=== PATIENT | female | born 1965 | race American Indian/Alaskan Native ===

== ENCOUNTER 2017-02-12 23:28 | Emergency (ER) | payer SELFPAY ==
[2017-02-12 23:28] VITALS: BMI 21.7
[2017-02-12 23:39] VITALS: BP 126/77; PULSE 99; RESP 16; TEMP 98.4; O2SAT 99
[2017-02-12] MEDS ORDERED: Albuterol-Ipratrop 3 mg / 0.5 (3 ml) UD ONE (23:55)
--- NOTE | 2017-02-13 00:02 | ED PDOC ---
HPI: SOB/CHF/COPD Time Seen by Provider: 02/12/17 23:39 Chief Complaint (Nursing): Shortness Of Breath Chief Complaint (Provider): cough, wheezing History Per: Patient History/Exam Limitations: no limitations Onset/Duration Of Symptoms: Days (2) Current Symptoms Are (Timing): Still Present Current Respiratory Medications: Albuterol Additional History Per: Patient Additional Complaint(s): 51 y/o female history of asthma presents with productive cough x 2 days. Associated wheezing, shortness of breath, post-tussive vomiting. Patient notes minimal relief with albuterol inhaler and nebulizer at home. Denies fever, nasal congestion/discharge, chest pain, palpitations, abdominal pain, leg pain/ swelling, recent travel. Past Medical History Reviewed: Historical Data, Nursing Documentation, Vital Signs Vital Signs: Last Vital Signs Temp 98.4 F 02/12/17 23:37 Pulse 99 H 02/12/17 23:37 Resp 16 02/12/17 23:37 BP 126/77 02/12/17 23:37 Pulse Ox 99 02/13/17 02:00 - Medical History PMH: Anemia, Asthma, Hypercholesterolemia, TIA Denies: HIV, Chronic Kidney Disease - Surgical History Surgical History: Cholecystectomy - Family History Family History: States: Unknown Family Hx - Immunization History Hx Tetanus Toxoid Vaccination: No Hx Influenza Vaccination: No - Home Medications Home Medications: Ambulatory Orders Medication Instructions Recorded Albuterol 0.083% [Albuterol 0.083% 3 ml IH Q6H PRN 12/29/15 Inhal Sumi (2.5 mg/3 ml) UD] Aspirin [Ecotrin] 81 mg PO DAILY 12/29/15 Atorvastatin [Lipitor] 10 mg PO DAILY #0 tab 12/31/15 Losartan [Cozaar] 25 mg PO DAILY #0 tab 12/31/15 medroxyPROGESTERONEone Acetate 5 mg PO DAILY #10 tab 05/22/16 [Provera] Azithromycin [Zithromax] 250 mg PO DAILY #1 packet 02/13/17 Guaifenesin [Mucinex] 1 - 2 tab PO Q12 #20 02/13/17 Prednisone 50 mg PO DAILY #4 tablet 02/13/17 Promethazine HCl/Codeine 5 ml PO Q8 PRN #100 ml 02/13/17 [Prometh-Codein 6.25-10 mg/5 ml] - Allergies Allergies/Adverse Reactions: Allergies Allergy/AdvReac Type Severity Reaction Status Date / Time Penicillins Allergy RASH Verified 05/22/16 10:14 Review of Systems ROS Statement: Except As Marked, All Systems Reviewed And Found Negative Respiratory: Positive for: Cough, Shortness of Breath, Wheezing Physical Exam - Reviewed Nursing Documentation Reviewed: Yes Vital Signs Reviewed: Yes - Physical Exam Appears: Positive for: Well, Non-toxic, Uncomfortable Skin: Positive for: Normal Color Eye Exam: Positive for: Normal appearance ENT: Positive for: Normal ENT Inspection Cardiovascular/Chest: Positive for: Regular Rate, Rhythm Respiratory: Positive for: Wheezing (diffuse) Gastrointestinal/Abdominal: Positive for: Normal Exam Back: Positive for: Normal Inspection Extremity: Positive for: Normal ROM Neurologic/Psych: Positive for: Alert, Oriented - Laboratory Results Result Diagrams: 02/13/17 01:05 02/13/17 01:05 - ECG ECG: Positive for: Viewed By [facility] (105bpm) ECG Rhythm: Positive for: Sinus Tachycardia O2 Sat by Pulse Oximetry: 99 - Radiology X-Ray: Viewed By Va X-Ray Interpretation: No Acute Disease - Progress ED Course And Treament: labs, ekg, chest xray, duonebs, solumedrol Patient vomiting phlegm in ED; IV fluids, IV zofran ordered On re-eval, patient states she is feeling better. Tolerated PO. Patient educated on findings, discharged with rx prednisone, mucinex, promethazine with codeine, zpak Advised to continue albuterol nebs/HFA as needed. Follow up PMD 2-3 days. Return to ED for worsening/concerning symptoms. Disposition - Clinical Impression Clinical Impression: Bronchitis - Patient ED Disposition Is Patient to be Admitted: No Counseled Patient/Family Regarding: Studies Performed, Diagnosis, Need For Followup, Rx Given - Disposition Disposition: Routine/Home Disposition Time: 02:53 Condition: IMPROVED Prescriptions: Azithromycin [Zithromax] 250 mg PO DAILY #1 packet Guaifenesin [Mucinex] 1 - 2 tab PO Q12 #20 Prednisone 50 mg PO DAILY #4 tablet Promethazine HCl/Codeine [Prometh-Codein 6.25-10 mg/5 ml] 5 ml PO Q8 PRN #100 ml PRN Reason: Cough Instructions: Acute Bronchitis (ED) Forms: [employer] (Vietnamese)
[2017-02-13] MEDS: Albuterol-Ipratrop 3 mg / 0.5 (3 ml) UD IH STA ×3 (00:03→00:32)
[2017-02-13] MEDS ORDERED: Albuterol-Ipratrop 3 mg / 0.5 (3 ml) UD ONE ×2 (00:05→00:31)
[2017-02-13 01:09] LABS: BASO # 0.2 K/uL (0.0-0.2); BASO % 1.4 % (0.0-2.0); EOS # 0.1 K/uL (0.0-0.7); HEMATOCRIT 39.1 % (34.0-47.0); LYMPH # 1.5 K/uL (1.0-4.3); LYMPH % 10.4 % (20.0-40.0); MEAN CELL VOLUME 89.5 fl (81.0-99.0); MEAN CORPUSCULAR HGB CONC 32.4 g/dL (33.0-37.0); MONO # 0.6 K/uL (0.0-0.8); MONO % 4.2 % (0.0-10.0); RED CELL DISTRIBUTION WIDTH 18.9 % (11.5-14.5); WHITE BLOOD COUNT 14.4 K/uL (4.8-10.8)
[2017-02-13 01:17] LABS: ALKALINE PHOSPHATASE 101 U/L (38-126); ALT/SGPT 19 U/L (9-52); AST/SGOT 18 U/L (14-36); BILIRUBIN,TOTAL 0.4 mg/dl (0.2-1.3); BLOOD UREA NITROGEN 13 mg/dl (7-17); CALCIUM 9.8 mg/dL (8.4-10.2); CARBON DIOXIDE 23 mmol/L (22-30); CHLORIDE 106 mmol/L (98-107); GFR AFRICAN-AMERICAN > 60; GLUCOSE,RANDOM 91 mg/dL (65-105); POTASSIUM 4.1 MMOL/L (3.6-5.0); SODIUM 145 mmol/l (132-148); TOTAL PROTEIN 8.6 G/DL (6.3-8.2)
[2017-02-13 01:18] LABS: ALB/GLOB RATIO 1.2 (1.0-2.1)
[2017-02-13] MEDS: Sodium Chloride 0.9% 1,000 ML IV STA (01:42)
[2017-02-13] MEDS ORDERED: Promethazine/Cod 6.25mg-10mg/5ml Syr UD ONE (02:53)
[2017-02-13] MEDS: Promethazine/Cod 6.25mg-10mg/5ml Syr UD PO STA (02:55)
--- NOTE | 2017-02-13 08:50 | RAD ---
HISTORY: cough, wheezing COMPARISON: 12/29/2015 TECHNIQUE: Chest PA and lateral FINDINGS: LUNGS: Hyperinflation, manifestations of COPD. No active pulmonary disease. PLEURA: No significant pleural effusion identified. No pneumothorax apparent. CARDIOVASCULAR: Normal. OSSEOUS STRUCTURES: No significant abnormalities. VISUALIZED UPPER ABDOMEN: Normal. OTHER FINDINGS: None. IMPRESSION: No active disease. No significant interval change compared to the prior examination(s). Please note: No preliminary report/ innterpretation of this examination provided by emergency department personnel.
== END 2017-02-13 03:00 | disposition home or self-care (01) ==
LOC: H.ER 23:28
DX: R06.2 Wheezing (principal); J40 Bronchitis, not specified as acute or chronic
CPT/HCPCS: 71020; 80053; 85025; 96374; 99282; J2405; J2930; J7040

== ENCOUNTER 2017-06-13 07:57 | Emergency (ER) | payer OTHER ==
[2017-06-13 08:06] VITALS: BMI 22.8
[2017-06-13 08:07] VITALS: BP 120/71; PULSE 94; RESP 20; TEMP 97.5; O2SAT 99
[2017-06-13] MEDS ORDERED: Morphine 4 MG/ML VIAL IVP STA (08:51)
--- NOTE | 2017-06-13 08:59 | ED PDOC ---
HPI: Abdomen Time Seen by Provider: 06/13/17 08:30 Chief Complaint (Nursing): Abdominal Pain History Per: Patient History/Exam Limitations: no limitations Onset/Duration Of Symptoms: Days (2), Gradual Severity: Moderate Location Of Pain/Discomfort: Epigastric Quality Of Discomfort: Dull, Cramping Associated Symptoms: Nausea, Vomiting. denies: Fever, Chills, Back Pain, Chest Pain, Constipation, Urinary Symptoms Exacerbating Factors: None Alleviating Factors: None Additional History Per: Patient, Family Additional Complaint(s): c/o epigastric pain x 2days +n/v, SOB when vomiting, unable to tolerate food. Past Medical History Reviewed: Historical Data, Nursing Documentation Vital Signs: Last Vital Signs Temp 97.5 F L 06/13/17 08:06 Pulse 94 H 06/13/17 08:06 Resp 20 06/13/17 08:06 BP 120/71 06/13/17 08:06 Pulse Ox 99 06/13/17 09:00 - Medical History PMH: Anemia, Asthma, Hypercholesterolemia, TIA Denies: HIV, Chronic Kidney Disease - Surgical History Surgical History: Cholecystectomy - Family History Family History: States: Unknown Family Hx - Living Arrangements Living Arrangements: With Family - Social History Current smoker - smoking cessation education provided: No - Immunization History Hx Tetanus Toxoid Vaccination: No Hx Influenza Vaccination: No - Home Medications Home Medications: Ambulatory Orders Medication Instructions Recorded Albuterol 0.083% [Albuterol 0.083% 3 ml IH Q6H PRN 12/29/15 Inhal Sumi (2.5 mg/3 ml) UD] Aspirin [Ecotrin] 81 mg PO DAILY 12/29/15 Atorvastatin [Lipitor] 10 mg PO DAILY #0 tab 12/31/15 Losartan [Cozaar] 25 mg PO DAILY #0 tab 12/31/15 medroxyPROGESTERONEone Acetate 5 mg PO DAILY #10 tab 05/22/16 [Provera] Azithromycin [Zithromax] 250 mg PO DAILY #1 packet 02/13/17 Guaifenesin [Mucinex] 1 - 2 tab PO Q12 #20 02/13/17 Prednisone 50 mg PO DAILY #4 tablet 02/13/17 Promethazine HCl/Codeine 5 ml PO Q8 PRN #100 ml 02/13/17 [Prometh-Codein 6.25-10 mg/5 ml] Esomeprazole Magnesium [Nexium] 20 mg PO DAILY 14 Days capsule. 06/13/17 Ondansetron [Zofran Odt] 4 mg PO QID PRN #16 odt 06/13/17 - Allergies Allergies/Adverse Reactions: Allergies Allergy/AdvReac Type Severity Reaction Status Date / Time Penicillins Allergy RASH Verified 06/13/17 08:10 Review of Systems ROS Statement: Except As Marked, All Systems Reviewed And Found Negative Constitutional: Negative for: Fever, Chills Cardiovascular: Negative for: Chest Pain Respiratory: Negative for: Cough, Shortness of Breath, SOB with Exertion, Sputum Gastrointestinal: Positive for: Nausea, Vomiting, Abdominal Pain Skin: Negative for: Rash Neurological: Negative for: Weakness, Numbness Physical Exam - Reviewed Nursing Documentation Reviewed: Yes Vital Signs Reviewed: Yes - Physical Exam Appears: Positive for: Uncomfortable Head Exam: Positive for: ATRAUMATIC, NORMAL INSPECTION, NORMOCEPHALIC Eye Exam: Positive for: Normal appearance, EOMI, PERRL Neck: Positive for: Normal, Painless ROM, Supple Cardiovascular/Chest: Positive for: Regular Rate, Rhythm, Chest Non Tender. Negative for: Edema, Gallop, Murmur, Bradycardia, Tachycardia Respiratory: Positive for: Normal Breath Sounds. Negative for: Decreased Breath Sounds, Accessory Muscle Use, Crackles, Rales, Rhonchi, Stridor, Wheezing Gastrointestinal/Abdominal: Positive for: Normal Exam, Bowel Sounds, Soft. Negative for: Tenderness Back: Positive for: Normal Inspection. Negative for: L CVA Tenderness, R CVA Tenderness Extremity: Positive for: Normal ROM. Negative for: Tenderness, Pedal Edema, Calf Tenderness, Deformity, Swelling Neurologic/Psych: Positive for: Alert, metrology specialist II-XII, Oriented. Negative for: Motor/Sensory Deficits - Laboratory Results Result Diagrams: 06/13/17 09:40 06/13/17 09:40 - ECG ECG: Positive for: Interpreted By Me ECG Rhythm: Positive for: Normal QRS, Normal ST Segment, Sinus Rhythm (94), Right Bundle Branch Block Interpretation Of Abn EKG: marleen ruiz when compared to 02/12/2017 O2 Sat by Pulse Oximetry: 99 Pulse Ox Interpretation: Normal - Radiology X-Ray: Interpreted by Me X-Ray Interpretation: No Acute Disease - Progress ED Course And Treament: ct scan unremarkable advise close pmd f/u, likely gastritis. will d/c home. all of pt's questions were answered and pt agree's with plan. repeat abd exam revelas no tenderness. Re-evaluation Time: 12:00 Condition: Improved Disposition - Clinical Impression Clinical Impression: Gastritis - Patient ED Disposition Is Patient to be Admitted: No Counseled Patient/Family Regarding: Studies Performed, Diagnosis, Need For Followup, Rx Given - Disposition Referrals: [facility] [Outside] (2 to 3 days) Disposition: Routine/Home Disposition Time: 12:00 Condition: STABLE Prescriptions: Esomeprazole Magnesium [Nexium] 20 mg PO DAILY 14 Days capsule. Ondansetron [Zofran Odt] 4 mg PO QID PRN #16 odt PRN Reason: Nausea/Vomiting Instructions: Dyspnea (ED), Gastritis (ED) Forms: [employer] (Greenlandic)
[2017-06-13] MEDS ORDERED: Morphine 4 MG/ML VIAL ONE (09:22)
[2017-06-13 09:56] LABS: BASO # 0.1 K/uL (0.0-0.2); BASO % 0.6 % (0.0-2.0); EOS # 0.1 K/uL (0.0-0.7); EOS % 1.4 % (0.0-4.0); HEMOGLOBIN 14.1 g/dL (12.0-16.0); LYMPH # 0.6 K/uL (1.0-4.3); LYMPH % 7.5 % (20.0-40.0); MEAN CELL VOLUME 90.5 fl (81.0-99.0); MEAN CORPUSCULAR HEMOGLOBIN 30.5 pg (27.0-31.0); MEAN CORPUSCULAR HGB CONC 33.7 g/dL (33.0-37.0); MEAN PLATELET VOLUME 8.9 fl (7.2-11.7); MONO # 0.7 K/uL (0.0-0.8); NEUT % 82.5 % (50.0-75.0); NRBC % 0.1 % (0.0-0.0); PLATELET COUNT 263 K/uL (130-400); RBC 4.64 Mil/uL (3.80-5.20); RED CELL DISTRIBUTION WIDTH 15.9 % (11.5-14.5); WHITE BLOOD COUNT 8.5 K/uL (4.8-10.8)
[2017-06-13 10:07] LABS: PARTIAL THROMBOPLASTIN TIME 28.6 Seconds (25.6-37.1); PROTHROMBIN TIME 11.6 Seconds (9.8-13.1)
[2017-06-13 10:46] LABS: ANISOCYTOSIS SLIGHT; BANDS 4 % (0-2); EOSINOPHIL 3 % (0-7); LYMPHOCYTE 7 % (20-50); MONOCYTE 7 % (0-10); NEUTROPHIL 79 % (42-75); PLATELET ESTIMATE NORMAL (NORMAL); TOTAL CELLS COUNTED 100
[2017-06-13] MEDS ORDERED: Iodixanol 320 MG/ML 100 ML BOTTLE IV ONE (11:03)
[2017-06-13] MEDS ORDERED: Sodium Chloride 0.9% 50 ML IV ONE (11:03)
--- NOTE | 2017-06-13 12:02 | CT ---
PROCEDURE: CT Chest with contrast (Pulmonary Angiogram) HISTORY: Shortness of breath, pulmonary embolism suspected with COMPARISON: None available. TECHNIQUE: Axial computed tomography images were obtained of the chest in the pulmonary arterial phase of enhancement. Coronal and sagittal reformatted images were created and reviewed. Maximum intensity projection (MIP) reconstructed images in the following planes: Sleep Intravenous contrast dose: 99 cc Visipaque 320 Mean Hounsfield unit values in the main pulmonary artery: 255.36 Radiation dose: Total exam DLP = 1125.26 mGy-cm. This CT exam was performed using one or more of the following dose reduction techniques: Automated exposure control, adjustment of the mA and/or kV according to patient size, and/or use of iterative reconstruction technique. FINDINGS: PULMONARY ARTERIES: Unremarkable. No pulmonary embolism. AORTA: No acute findings. No thoracic aortic aneurysm. LUNGS: Unremarkable. No nodule, mass or pulmonary consolidation. PLEURAL SPACES: Unremarkable. No effusion or pneuomothorax. HEART: Unremarkable. No cardiomegaly. No significant pericardial effusion. LYMPH NODES: No lymphadenopathy. BONES, CHEST WALL: Unremarkable. No fracture or destructive lesion OTHER FINDINGS: Unremarkable. IMPRESSION: Unremarkable CT pulmonary angiogram. No pulmonary embolus.
--- NOTE | 2017-06-13 12:04 | CT ---
PROCEDURE: CT Abdomen and Pelvis with contrast HISTORY: luq abd pain r/o diveritculitis COMPARISON: None. TECHNIQUE: Contrast dose: 99 mL Visipaque 320 Radiation dose: Total exam DLP = 695.2 mGy-cm. This CT exam was performed using one or more of the following dose reduction techniques: Automated exposure control, adjustment of the mA and/or kV according to patient size, and/or use of iterative reconstruction technique. FINDINGS: LOWER THORAX: Unremarkable. LIVER: Unremarkable. No gross lesion or ductal dilatation. GALLBLADDER AND BILE DUCTS: Unremarkable. PANCREAS: Unremarkable. No gross lesion or ductal dilatation. SPLEEN: Unremarkable. ADRENALS: Unremarkable. No mass. KIDNEYS AND URETERS: Right upper pole cortical scarring. No hydronephrosis. No solid mass. VASCULATURE: Calcific atherosclerosis. No aortic aneurysm. BOWEL: Unremarkable. No obstruction. No gross mural thickening. APPENDIX: Normal appendix. PERITONEUM: Unremarkable. No free fluid. No free air. LYMPH NODES: Unremarkable. No enlarged lymph nodes. BLADDER: Unremarkable. REPRODUCTIVE: Heterogeneous uterus with multiple calcified and noncalcified leiomyomas. BONES: Spinal degenerative changes. No acute fracture. OTHER FINDINGS: None. IMPRESSION: No acute abdominal pelvic pathology.
--- NOTE | 2017-06-13 12:19 | RAD ---
PROCEDURE: CHEST RADIOGRAPH, 1 VIEW HISTORY: Abdominal pain. COMPARISON: 02/13/2017. FINDINGS: LUNGS: Clear. PLEURA: No pneumothorax or pleural fluid seen. CARDIOVASCULAR: Normal. OSSEOUS STRUCTURES: No significant abnormalities. VISUALIZED UPPER ABDOMEN: Normal. OTHER FINDINGS: None. IMPRESSION: No active disease. No acute/significant interval changes.
[2017-06-13 12:41] LABS: ALBUMIN 4.5 g/dL (3.5-5.0); ALT/SGPT 18 U/L (9-52); AMYLASE 56 U/L (30-110); AST/SGOT 22 U/L (14-36); CALCIUM 9.7 mg/dL (8.4-10.2); GFR AFRICAN-AMERICAN > 60; GFR NON-AFRICAN AMERICAN > 60; LIPASE 28 U/L (23-300)
[2017-06-13 12:42] LABS: BLOOD UREA NITROGEN 14 mg/dl (7-17)
== END 2017-06-13 12:56 | disposition home or self-care (01) ==
LOC: H.ER 07:57
DX: K29.70 Gastritis, unspecified, without bleeding (principal); R06.00 Dyspnea, unspecified; E78.00 Pure hypercholesterolemia, unspecified; J45.909 Unspecified asthma, uncomplicated; Z79.82 Long term (current) use of aspirin; Z86.73 Personal history of transient ischemic attack (TIA), and cerebral infarction without residual deficits; Z88.0 Allergy status to penicillin
CPT/HCPCS: 71045; 71275; 74177; 80053; 82150; 83605; 83690; 84484; 85025; 85378; 85610; 85730; 96374; 96375; 99283; J2270; J2405; Q9967

== ENCOUNTER 2018-07-29 07:53 | Emergency (ER) | payer BC ==
[2018-07-29 08:00] VITALS: BMI 20.8
[2018-07-29 08:02] VITALS: O2SAT 99
[2018-07-29] MEDS ORDERED: Albuterol-Ipratrop 3 mg / 0.5 (3 ml) UD IH STA ×2 (08:12→08:13)
--- NOTE | 2018-07-29 08:15 | ED PDOC ---
HPI: CCC, URI, Sore Throat Time Seen by Provider: 07/29/18 08:06 History Per: Patient Onset/Duration Of Symptoms: Days (2) Current Symptoms Are (Timing): Still Present Location Of Pain: Sinus/es Associated Symptoms: Cough, Sputum (white), Nasal Congestion. denies: Fever Severity: Moderate Additional Complaint(s): Nasal congestion started yesterday fllowed by SOB, wheezing and cough productive white sputu. Denies fever. Has been using inhaler with no improvement. Past Medical History Vital Signs: Last Vital Signs Temp 96.3 F L 07/29/18 08:00 Pulse 88 07/29/18 08:00 Resp 18 07/29/18 08:00 BP 123/78 07/29/18 08:00 Pulse Ox 99 07/29/18 08:00 - Medical History PMH: Anemia, Asthma, Hypercholesterolemia, TIA Denies: HIV, Chronic Kidney Disease - Surgical History Surgical History: Cholecystectomy - Family History Family History: States: Unknown Family Hx - Immunization History Hx Tetanus Toxoid Vaccination: No Hx Influenza Vaccination: No - Home Medications Home Medications: Ambulatory Orders Medication Instructions Recorded Albuterol 0.083% [Albuterol 0.083% 3 ml IH Q6H PRN 12/29/15 Inhal Sumi (2.5 mg/3 ml) UD] Aspirin [Ecotrin] 81 mg PO DAILY 12/29/15 Atorvastatin [Lipitor] 10 mg PO DAILY #0 tab 12/31/15 Losartan [Cozaar] 25 mg PO DAILY #0 tab 12/31/15 medroxyPROGESTERONEone Acetate 5 mg PO DAILY #10 tab 05/22/16 [Provera] Azithromycin [Zithromax] 250 mg PO DAILY #1 packet 02/13/17 Guaifenesin [Mucinex] 1 - 2 tab PO Q12 #20 02/13/17 Prednisone 50 mg PO DAILY #4 tablet 02/13/17 Promethazine HCl/Codeine 5 ml PO Q8 PRN #100 ml 02/13/17 [Prometh-Codein 6.25-10 mg/5 ml] Esomeprazole Magnesium [Nexium] 20 mg PO DAILY 14 Days capsule. 06/13/17 Ondansetron [Zofran Odt] 4 mg PO QID PRN #16 odt 02/08/18 Albuterol 0.083% [Albuterol 3 ml IH Q8 #1 neb 07/29/18 Sulfate 3 Ml] Fluticasone Nasal [Flonase] 1 actuation NS DAILY #1 spr 07/29/18 Prednisone 50 mg PO DAILY #5 tab 07/29/18 - Allergies Allergies/Adverse Reactions: Allergies Allergy/AdvReac Type Severity Reaction Status Date / Time Penicillins Allergy RASH Verified 06/13/17 08:10 Review of Systems ROS Statement: Except As Marked, All Systems Reviewed And Found Negative Constitutional: Negative for: Fever ENT: Positive for: Nose Congestion Respiratory: Positive for: Cough, Shortness of Breath, Wheezing Physical Exam - Reviewed Nursing Documentation Reviewed: Yes Vital Signs Reviewed: Yes - Physical Exam Appears: Positive for: Non-toxic, No Acute Distress Head Exam: Positive for: ATRAUMATIC, NORMAL INSPECTION, NORMOCEPHALIC Skin: Positive for: Normal Color, Warm, DRY Eye Exam: Positive for: EOMI, Normal appearance, PERRL ENT: Positive for: Normal ENT Inspection Neck: Positive for: Normal, Painless ROM Cardiovascular/Chest: Positive for: Regular Rate, Rhythm Respiratory: Positive for: Wheezing. Negative for: Respiratory Distress Gastrointestinal/Abdominal: Positive for: Normal Exam, Soft Back: Positive for: Normal Inspection Extremity: Positive for: Normal ROM Neurological/Psych: Positive for: Awake, Alert, Normal Tone - ECG O2 Sat by Pulse Oximetry: 99 - Progress Re-evaluation Time: 09:28 Condition: Improved (No wheezing) Disposition - Clinical Impression Clinical Impression: Upper respiratory infection - Patient ED Disposition Is Patient to be Admitted: No Counseled Patient/Family Regarding: Diagnosis, Need For Followup, Rx Given - Disposition Referrals: [facility] [Outside] Disposition: Routine/Home Disposition Time: 09:30 Condition: FAIR Prescriptions: Albuterol 0.083% [Albuterol Sulfate 3 Ml] 3 ml IH Q8 #1 neb Fluticasone Nasal [Flonase] 1 actuation NS DAILY #1 spr Prednisone 50 mg PO DAILY #5 tab Instructions: Viral Upper Respiratory Infection, Adult (DC)
[2018-07-29 10:08] VITALS: BP 121/71; PULSE 79; RESP 16; TEMP 97.1
== END 2018-07-29 10:08 | disposition home or self-care (01) ==
LOC: H.ER 07:53
DX: J06.9 Acute upper respiratory infection, unspecified (principal)

== ENCOUNTER 2018-07-30 19:23 | Inpatient (IN) | payer BC ==
[2018-07-30] MEDS ORDERED: Albuterol-Ipratrop 3 mg / 0.5 (3 ml) UD INH STA ×3 (19:46→23:40)
[2018-07-30] MEDS ORDERED: Albuterol-Ipratrop 3 mg / 0.5 (3 ml) UD ONE ×2 (20:30→21:01)
[2018-07-30 21:01] LABS: BASO % 0.4 % (0.0-2.0); EOS # 0.3 K/uL (0.0-0.7); EOS % 2.4 % (0.0-4.0); HEMOGLOBIN 15.3 g/dL (12.0-16.0); LYMPH # 1.5 K/uL (1.0-4.3); LYMPH % 14.2 % (20.0-40.0); MEAN CELL VOLUME 95.4 fl (81.0-99.0); MEAN CORPUSCULAR HEMOGLOBIN 31.7 pg (27.0-31.0); MEAN CORPUSCULAR HGB CONC 33.3 g/dL (33.0-37.0); MEAN PLATELET VOLUME 8.3 fl (7.2-11.7); MONO # 0.7 K/uL (0.0-0.8); MONO % 7.1 % (0.0-10.0); NEUT # 7.8 K/uL (1.8-7.0); NEUT % 75.9 % (50.0-75.0); NRBC % 0.1 % (0.0-0.0); RBC 4.81 Mil/uL (3.80-5.20); RED CELL DISTRIBUTION WIDTH 14.2 % (11.5-14.5); WHITE BLOOD COUNT 10.2 K/uL (4.8-10.8)
[2018-07-30 21:42] LABS: ALB/GLOB RATIO 1.1 (1.0-2.1); ALBUMIN 4.8 g/dL (3.5-5.0); ALT/SGPT 22 U/L (9-52); AST/SGOT 25 U/L (14-36); BLOOD UREA NITROGEN 19 mg/dl (7-17); CALCIUM 10.1 mg/dL (8.4-10.2); GFR NON-AFRICAN AMERICAN > 60
--- NOTE | 2018-07-30 22:04 | ED PDOC ---
HPI: Asthma Time Seen by Provider: 07/30/18 19:41 Chief Complaint (Nursing): Cough, Cold, Congestion Chief Complaint (Provider): cough, SOB History Per: Patient History/Exam Limitations: no limitations Onset/Duration Of Symptoms: Days (3), Gradual Current Symptoms Are (Timing): Still Present Associated Symptoms: Dyspnea, Cough Precipitating Factors: Bronchitis Symptoms Severity: Moderate Additional Complaint(s): 52yo female hx asthma, sent from PMD office for cough and dyspnea. Denies hemop tysis, fever, syncope or orthopnea. Using albuterol at home without much relief. Seen ED 1 day ago and discharged with albuterol, prednisone which she states she is taking, but states symptoms worsening. Past Medical History Reviewed: Historical Data, Nursing Documentation, Vital Signs Vital Signs: Last Vital Signs Temp 98.1 F 07/30/18 19:25 Pulse 76 07/30/18 19:25 Resp 16 07/30/18 19:25 BP 124/79 07/30/18 19:25 Pulse Ox 96 07/30/18 19:25 - Medical History PMH: Anemia, Asthma, Hypercholesterolemia, TIA Denies: HIV, Chronic Kidney Disease - Surgical History Surgical History: Cholecystectomy Other surgeries: knee - Family History Family History: States: Unknown Family Hx - Social History Current smoker - smoking cessation education provided: No (quit) - Immunization History Hx Tetanus Toxoid Vaccination: No Hx Influenza Vaccination: No - Home Medications Home Medications: Ambulatory Orders Medication Instructions Recorded Albuterol 0.083% [Albuterol 0.083% 3 ml IH Q6H PRN 12/29/15 Inhal Sumi (2.5 mg/3 ml) UD] Aspirin [Ecotrin] 81 mg PO DAILY 12/29/15 Atorvastatin [Lipitor] 10 mg PO DAILY #0 tab 12/31/15 Losartan [Cozaar] 25 mg PO DAILY #0 tab 12/31/15 medroxyPROGESTERONEone Acetate 5 mg PO DAILY #10 tab 05/22/16 [Provera] Azithromycin [Zithromax] 250 mg PO DAILY #1 packet 02/13/17 Guaifenesin [Mucinex] 1 - 2 tab PO Q12 #20 02/13/17 Prednisone 50 mg PO DAILY #4 tablet 02/13/17 Promethazine HCl/Codeine 5 ml PO Q8 PRN #100 ml 02/13/17 [Prometh-Codein 6.25-10 mg/5 ml] Esomeprazole Magnesium [Nexium] 20 mg PO DAILY 14 Days capsule. 06/13/17 Ondansetron [Zofran Odt] 4 mg PO QID PRN #16 odt 06/13/17 Fluticasone Nasal [Flonase] 1 actuation NS DAILY #1 spr 07/29/18 Albuterol 0.083% [Albuterol 3 ml IH Q6 PRN 07/30/18 Sulfate 3 Ml] Albuterol Sulfate [Albuterol 1 inh INH Q6 07/30/18 Sulfate Hfa] Prednisone 1 mg PO DAILY 07/30/18 - Allergies Allergies/Adverse Reactions: Allergies Allergy/AdvReac Type Severity Reaction Status Date / Time Penicillins Allergy RASH Verified 07/30/18 19:24 Review of Systems Constitutional: Negative for: Fever Cardiovascular: Negative for: Chest Pain, Paroxysmal Noc. Dyspnea Respiratory: Positive for: Cough, SOB with Exertion, Pleuritic Pain, Wheezing Gastrointestinal: Negative for: Abdominal Pain Genitourinary Female: Negative for: Incontinence Musculoskeletal: Negative for: Neck Pain Skin: Negative for: Rash, Lesions Neurological: Negative for: Weakness, Numbness, Headache Psych: Negative for: Suicidal ideation Physical Exam - Reviewed Nursing Documentation Reviewed: Yes Vital Signs Reviewed: Yes - Physical Exam Appears: Positive for: Well, Non-toxic (mild resp distress) Head Exam: Positive for: ATRAUMATIC, NORMAL INSPECTION, NORMOCEPHALIC Skin: Positive for: Normal Color, Warm, DRY Eye Exam: Positive for: EOMI, Normal appearance, PERRL ENT: Positive for: Normal ENT Inspection Neck: Positive for: Normal, Painless ROM Cardiovascular/Chest: Positive for: Regular Rate, Rhythm Respiratory: Positive for: Decreased Breath Sounds, Wheezing, Respiratory Distress (mild), Other (cough) Pulses-Radial (L): 3+/4+ Pulses-Radial (R): 3+/4+ Gastrointestinal/Abdominal: Positive for: Soft. Negative for: Tenderness Back: Positive for: Normal Inspection Extremity: Positive for: Normal ROM Neurological/Psych: Positive for: Awake, Alert, Normal Tone, Symmetric/Intact Strength - Laboratory Results Result Diagrams: 07/30/18 20:54 07/30/18 20:54 Lab Results: Total Bilirubin 0.9 mg/dl (0.2-1.3) 07/30/18 20:54 AST 25 U/L (14-36) 07/30/18 20:54 ALT 22 U/L (9-52) 07/30/18 20:54 Alkaline Phosphatase 95 U/L (38-126) 07/30/18 20:54 Total Protein 9.1 G/DL (6.3-8.2) H 07/30/18 20:54 Albumin 4.8 g/dL (3.5-5.0) 07/30/18 20:54 Globulin 4.3 gm/dL (2.2-3.9) H 07/30/18 20:54 Albumin/Globulin Ratio 1.1 (1.0-2.1) 07/30/18 20:54 - ECG ECG: Positive for: Interpreted By Me ECG Rhythm: Positive for: Sinus Rhythm, Right Bundle Branch Block (no change from prior as compared 2017 and 2016) Rate: 70 O2 Sat by Pulse Oximetry: 96 Pulse Ox Interpretation: Normal - Radiology X-Ray: Interpreted by Me X-Ray Interpretation: No Acute Disease Medical Decision Making Medical Decision Making: labs, CXR and duoneb w solumedrol ordered no evidence respiratory failure labs and CXR reviewed. BUN elev c/w likely dehydration from vomiting. IVF initiated. Denies abd pain. re-eval 945p wheeze persists, notes nausea, zofran ordered re-eval 1030p remains w/ wheeze and mild tachypnea. Failed outpatient therapy as already on albuterol and prednisone, with bounce back to ED in approx [address] Obs [address] Dr Lawrence rehabilitation aide/scheduler medicine. Case discussed 1040pm. Disposition - Clinical Impression Clinical Impression: Asthma exacerbation, Vomiting - Patient ED Disposition Is Patient to be Admitted: Yes - Disposition Disposition Time: 22:30 Condition: STABLE - Pt Status Changed To: Hospital Disposition Of: Observation
[2018-07-30] MEDS ORDERED: Sodium Chloride 0.9% 1,000 ML IV STA (22:42)
[2018-07-31] MEDS ORDERED: Albuterol-Ipratrop 3 mg / 0.5 (3 ml) UD ONE (00:21)
[2018-07-31 01:47] VITALS: BMI 20.9
[2018-07-31] MEDS: Albuterol-Ipratrop 3 mg / 0.5 (3 ml) UD INH SCH ×7 (03:02→23:22)
[2018-07-31] MEDS: MethylPREDNISolone 40 mg Vial IVP SCH ×4 (03:31→22:38)
[2018-07-31] MEDS ORDERED: Influenza Vaccine (5 YR UP)/PF 60 MCG/0.5 ML SYR IM ONE (06:00)
[2018-07-31] MEDS ORDERED: Influenza Vaccine 60 mcg/0.5 mL SYR (4YR UP) IM ONE (06:00)
[2018-07-31] MEDS ORDERED: Pneumococcal 23-Valent Vaccine IM ONE (06:00)
[2018-07-31 06:54] LABS: LDL CHOLESTEROL 209 mg/dL (0-129)
[2018-07-31 06:58] LABS: HEMOGLOBIN 14.2 g/dL (12.0-16.0); MEAN CELL VOLUME 96.5 fl (81.0-99.0); MEAN CORPUSCULAR HEMOGLOBIN 31.1 pg (27.0-31.0); MEAN CORPUSCULAR HGB CONC 32.2 g/dL (33.0-37.0); RBC 4.57 Mil/uL (3.80-5.20); RED CELL DISTRIBUTION WIDTH 14.5 % (11.5-14.5); WHITE BLOOD COUNT 8.2 K/uL (4.8-10.8)
[2018-07-31 07:02] LABS: ALB/GLOB RATIO 1.1 (1.0-2.1); ALBUMIN 4.5 g/dL (3.5-5.0); ALT/SGPT 16 U/L (9-52); AST/SGOT 19 U/L (14-36); BLOOD UREA NITROGEN 19 mg/dl (7-17); CALCIUM 9.7 mg/dL (8.4-10.2); GFR NON-AFRICAN AMERICAN > 60; HDL CHOLESTEROL 67 MG/DL (30-70)
[2018-07-31 07:14] LABS: T3 0.812 nmol/L (1.49-2.60)
[2018-07-31] MEDS ORDERED: methylPREDNISolone 40 MG in Sodium Chloride 0.9% 50 ML IV SCH (10:00)
--- NOTE | 2018-07-31 10:57 | CARD ---
APPROVED REPORT Date of service: 07/30/2018 EKG Measurement Heart [id number] <Conclusion> Normal sinus rhythm Right bundle branch block Abnormal ECG
--- NOTE | 2018-07-31 11:37 | RAD ---
Date of service: 07/30/2018 HISTORY: cough COMPARISON: 06/13/2017. TECHNIQUE: Chest PA and lateral views FINDINGS: LUNGS: Hyperinflation, manifestations of COPD. No active pulmonary disease. PLEURA: No significant pleural effusion identified. No pneumothorax apparent. CARDIOVASCULAR: No aortic atherosclerotic calcification present. Normal cardiac size. No pulmonary vascular congestion. OSSEOUS STRUCTURES: No significant abnormalities. VISUALIZED UPPER ABDOMEN: Normal. OTHER FINDINGS: None. IMPRESSION: No active disease. No significant interval change compared to the prior examination(s). Concordant results with the preliminary interpretation rendered by the emergency department physician procedure.
[2018-07-31] MEDS: Enoxaparin 40 mg Syringe SC SCH (14:21)
--- NOTE | 2018-07-31 14:59 | CP.PCM.HP ---
History of Present Illness - History of Present Illness History of Present Illness: CC: SOB/cough 52 y/o F, sent on 07/30/18, from her PMD office to ER [facility], via EMS, to be evaluated for acute SOB sustained for 3 days [employer], increased on DOA, associated to wheezing, nasal congestion, cough with white sputum, non bloody. Pt was seen in ER [facility] day [employer] for same symptom, discharged on Prednisone, Albuterol, Flonase, but symptoms worsening that make her to return to hospital. Worsening symptom: ARVIZU, Pleuritic pain with coughing. Aggravated factor: Exercise, ADL's. Pt denied: Fever, chills, n/v/d, abdominal pain, urinary symptoms, CP, palpitations, orthopnea, sick contact, recent travel out of [facility]. PMHx; Asthma, Hypercholesterolemia, TIA, Anemia. CXR: No active disease. EKG: Normal sinus rhythm, R BBB. Present on Admission - Present on Admission Any Indicators Present on Admission: No Review of Systems - Constitutional Constitutional: Other (negative) - EENT Eyes: Requires Corrective Lenses Ears: Other (negative) Nose/Mouth/Throat: Nasal Congestion - Cardiovascular Cardiovascular: Other (negative) - Respiratory Respiratory: Cough, Dyspnea, Dyspnea on Exertion, Pain with Coughing - Gastrointestinal Gastrointestinal: Other (negative) - Genitourinary Genitourinary: Other (negative) - Musculoskeletal Musculoskeletal: Other (negative) - Integumentary Integumentary: Other (negative) - Neurological Neurological: Other (negative) - Psychiatric Psychiatric: Other (negative) - Endocrine Endocrine: Other (negative) - Hematologic/Lymphatic Hematologic: Other (negative) Past Patient History - Infectious Disease Hx of Infectious Diseases: None - Tetanus Immunizations Tetanus Immunization: Unknown - Past Medical History & Family History Past Medical History?: Yes Pertinent Family History: Unknown - Past Social History Smoking Status: Never Smoked Alcohol: None Drugs: Denies Home Situation {Lives}: With Family - CARDIAC Hx Cardiac Disorders: Yes Hx Hypercholesterolemia: Yes - PULMONARY Hx Respiratory Disorders: Yes Hx Asthma: Yes - NEUROLOGICAL Hx Neurological Disorder: Yes Hx Transient Ischemic Attacks (TIA): Yes - HEENT Hx HEENT Problems: Yes Other/Comment: wears glasses - RENAL Hx Chronic Kidney Disease: No - ENDOCRINE/METABOLIC Hx Endocrine Disorders: No - HEMATOLOGICAL/ONCOLOGICAL Hx Blood Disorders: Yes Hx Anemia: Yes Hx Human Immunodeficiency Virus (HIV): No - INTEGUMENTARY Hx Dermatological Problems: No - MUSCULOSKELETAL/RHEUMATOLOGICAL Hx Musculoskeletal Disorders: No Hx Falls: No - GASTROINTESTINAL Hx Gastrointestinal Disorders: No - GENITOURINARY/GYNECOLOGICAL Hx Genitourinary Disorders: No - PSYCHIATRIC Hx Psychophysiologic Disorder: No Hx Substance Use: Yes - SURGICAL HISTORY Hx Surgeries: Yes Other/Comment: right knee sx - ANESTHESIA Hx Anesthesia: Yes Hx Anesthesia Reactions: No Meds Allergies/Adverse Reactions: Allergies Allergy/AdvReac Type Severity Reaction Status Date / Time Penicillins Allergy RASH Verified 07/30/18 19:24 Physical Exam - Constitutional Appears: No Acute Distress - Head Exam Head Exam: NORMAL INSPECTION - Eye Exam Eye Exam: PERRL - ENT Exam ENT Exam: Normal Exam - Neck Exam Neck exam: Positive for: Normal Inspection - Respiratory Exam Respiratory Exam: Decreased Breath Sounds (b/l), Wheezes (b/l) - Cardiovascular Exam Cardiovascular Exam: REGULAR RHYTHM - GI/Abdominal Exam GI & Abdominal Exam: Normal Bowel Sounds, Soft - Extremities Exam Extremities exam: Positive for: normal inspection - Back Exam Back exam: NORMAL INSPECTION - Neurological Exam Neurological exam: Alert, Oriented x3 Additional comments: No motor/sensory deficit. - Psychiatric Exam Psychiatric exam: Normal Mood - Skin Skin Exam: Normal Color Results - Vital Signs Recent Vital Signs: Last Vital Signs Temp 97.6 F 07/31/18 08:36 Pulse 74 07/31/18 08:36 Resp 18 07/31/18 08:36 BP 118/75 07/31/18 08:36 Pulse Ox 96 07/31/18 02:10 reviewed J.PNeeraj - Labs Result Diagrams: 07/31/18 05:40 07/31/18 05:40 Labs: Laboratory Results - last 24 hr 07/30/18 07/30/18 07/31/18 20:54 20:54 05:40 WBC 10.2 8.2 RBC 4.81 4.57 Hgb 15.3 14.2 Hct 45.9 44.0 MCV 95.4 D 96.5 MCH 31.7 H 31.1 H MCHC 33.3 32.2 L RDW 14.2 14.5 Plt Count 299 267 MPV 8.3 Neut % (Auto) 75.9 H Lymph % (Auto) 14.2 L [place] % (Auto) 7.1 Eos % (Auto) 2.4 Baso % (Auto) 0.4 Neut # (Auto) 7.8 H Lymph # (Auto) 1.5 [place] # (Auto) 0.7 Eos # (Auto) 0.3 Baso # (Auto) 0.0 Sodium 140 Potassium 4.1 Chloride 101 Carbon Dioxide 25 Anion Gap 18 BUN 19 H Creatinine 0.9 Est GFR ( Amer) > 60 Est GFR (Non-Af Amer) > 60 Random Glucose 91 Calcium 10.1 Total Bilirubin 0.9 AST 25 ALT 22 Alkaline Phosphatase 95 Total Protein 9.1 H Albumin 4.8 Globulin 4.3 H Albumin/Globulin Ratio 1.1 Triglycerides Cholesterol LDL Cholesterol Direct HDL Cholesterol Thyroxine (T4) Total T3 TSH 3rd Generation 07/31/18 05:40 WBC RBC Hgb Hct MCV MCH MCHC RDW Plt Count MPV Neut % (Auto) Lymph % (Auto) [place] % (Auto) Eos % (Auto) Baso % (Auto) Neut # (Auto) Lymph # (Auto) [place] # (Auto) Eos # (Auto) Baso # (Auto) Sodium 138 Potassium 4.6 Chloride 102 Carbon Dioxide 23 Anion Gap 18 BUN 19 H Creatinine 0.9 Est GFR ( Amer) > 60 Est GFR (Non-Af Amer) > 60 Random Glucose 179 H Calcium 9.7 Total Bilirubin 0.5 AST 19 ALT 16 Alkaline Phosphatase 88 Total Protein 8.5 H Albumin 4.5 Globulin 4.0 H Albumin/Globulin Ratio 1.1 Triglycerides 71 D Cholesterol 338 H LDL Cholesterol Direct 209 H HDL Cholesterol 67 Thyroxine (T4) 9.32 Total T3 0.812 L TSH 3rd Generation 0.21 L reviewed J.P. - EKG Data EKG comments: reviewed J.P. - Imaging and Cardiology Chest x-ray Status: Report reviewed by me (JNeerajP.) Assessment & Plan (1) Asthma exacerbation Status: Acute Priority: High (2) Hypercholesterolemia Status: Chronic Priority: High - Assessment and Plan (Free Text) Plan: Continue with Duoneb, Solu-Medrol, Singulair, Lovenox, add Lipitor and rest of Tx. - Date & Time Date: 07/31/18 Time: 08:50
[2018-08-01] MEDS: MethylPREDNISolone 40 mg Vial IVP SCH ×3 (04:25→18:44)
[2018-08-01] MEDS: Albuterol-Ipratrop 3 mg / 0.5 (3 ml) UD INH SCH ×6 (05:05→23:53)
[2018-08-01] MEDS: Enoxaparin 40 mg Syringe SC SCH (10:14)
--- NOTE | 2018-08-01 12:48 | PQF ---
PROVIDER RESPONSE TEXT: Provider was unable to determine a response for this query. REVIEWER QUERY TEXT: Asthma Specificity and Type Asthma is documented in the Medical Record. Please specify the type if known; i.e. -- Mild intermittent -- Mild persistent -- Moderate persistent -- Severe persistent -- Other, please specify ER: Respiratory: Positive for: Cough, SOB with Exertion, Pleuritic Pain, Wheezing --re-eval 1030p rem ains w/ wheeze and mild tachypnea.Failed outpatient therapy as already on albuterol and prednisone. Clinical Impression: Asthma exacerbation, Vomiting H and P includes: Respiratory: Respiratory Exam: Decreased Breath Sounds (b/l), Wheezes (b/l) Imp.: Asthma Exacerabation --Continue with Duoneb, Solu-Medrol, Singulair, Lovenox,-- and rest of Tx. The patient's Clinical Indicators include: -- Query created by: Sania Li on 08/01/2018 10:47 AM Electronically signed by: Faisal Lawrence MD 08/01/2018 12:45 PM
--- NOTE | 2018-08-01 13:39 | CP.PCM.PN ---
Subjective - Date & Time of Evaluation Date of Evaluation: 08/01/18 Time of Evaluation: 09:20 - Subjective Subjective: F/U Asthma Wheezing b/l, occasional dry cough. Objective - Vital Signs/Intake and Output Vital Signs (last 24 hours): Temp Pulse Resp BP Pulse Ox 97.5 F L 109 H 20 129/75 98 08/01/18 08:45 08/01/18 08:45 08/01/18 08:45 08/01/18 08:45 08/01/18 08:45 - Medications Medications: Current Medications Albuterol/Ipratropium (Duoneb 3 Mg/0.5 Mg (3 Ml) Ud) 3 ml INH RQ4 [facility] Last Admin: 08/01/18 12:55 Dose: 3 ml Aspirin (Aspirin Chewable) 81 mg PO DAILY [facility] Last Admin: 08/01/18 10:14 Dose: 81 mg Enoxaparin Sodium (Lovenox) 40 mg SC DAILY [facility]; Protocol Last Admin: 08/01/18 10:14 Dose: 40 mg Methylprednisolone (Solu-Medrol) 40 mg IVP Q6 [facility] Last Admin: 08/01/18 10:21 Dose: 40 mg Montelukast Sodium (Singulair) 10 mg PO DAILY [facility] Last Admin: 08/01/18 10:14 Dose: 10 mg Pantoprazole Sodium (Protonix Ec Tab) 40 mg PO DAILY [facility] - Labs Labs: 07/31/18 05:40 07/31/18 05:40 - Constitutional Appears: No Acute Distress - Head Exam Head Exam: NORMAL INSPECTION - Eye Exam Eye Exam: PERRL - ENT Exam ENT Exam: Normal Exam - Neck Exam Neck Exam: Normal Inspection - Respiratory Exam Respiratory Exam: Decreased Breath Sounds (b/l), Wheezes (b/l) - Cardiovascular Exam Cardiovascular Exam: REGULAR RHYTHM - GI/Abdominal Exam GI & Abdominal Exam: Soft, Normal Bowel Sounds - Extremities Exam Extremities Exam: Normal Inspection - Back Exam Back Exam: NORMAL INSPECTION - Neurological Exam Neurological Exam: Alert, Oriented x3. absent: Motor Sensory Deficit - Psychiatric Exam Psychiatric exam: Normal Mood - Skin Skin Exam: Normal Color, Warm Assessment and Plan (1) Asthma exacerbation Status: Acute (2) Hypercholesterolemia Status: Chronic - Assessment and Plan (Free Text) Plan: Continue Solu-Medrol, Duoneb, Singulair, ASA and rest of Tx.
[2018-08-01] MEDS: Pantoprazole 40 mg EC Tab PO SCH (14:18)
[2018-08-02] MEDS: MethylPREDNISolone 40 mg Vial IVP SCH ×5 (00:24→21:29)
[2018-08-02] MEDS: Albuterol-Ipratrop 3 mg / 0.5 (3 ml) UD INH SCH ×5 (04:33→19:52)
[2018-08-02] MEDS: Enoxaparin 40 mg Syringe SC SCH (08:58)
[2018-08-02] MEDS: Pantoprazole 40 mg EC Tab PO SCH (08:58)
--- NOTE | 2018-08-02 16:35 | CP.PCM.PN ---
Subjective - Date & Time of Evaluation Date of Evaluation: 08/02/18 Time of Evaluation: 13:25 - Subjective Subjective: F/U Asthma. C/O of dry cough, breathing better, less chest congestion. Objective - Vital Signs/Intake and Output Vital Signs (last 24 hours): Temp Pulse Resp BP Pulse Ox 98 F 72 18 125/72 97 08/02/18 16:06 08/02/18 16:06 08/02/18 16:06 08/02/18 16:06 08/02/18 16:06 - Medications Medications: Current Medications Albuterol/Ipratropium (Duoneb 3 Mg/0.5 Mg (3 Ml) Ud) 3 ml INH RQ4 [facility] Last Admin: 08/02/18 15:52 Dose: 3 ml Aspirin (Aspirin Chewable) 81 mg PO DAILY [facility] Last Admin: 08/02/18 08:58 Dose: 81 mg Enoxaparin Sodium (Lovenox) 40 mg SC DAILY [facility]; Protocol Last Admin: 08/02/18 08:58 Dose: 40 mg Methylprednisolone (Solu-Medrol) 40 mg IVP Q6 [facility] Last Admin: 08/02/18 15:13 Dose: 40 mg Montelukast Sodium (Singulair) 10 mg PO DAILY [facility] Last Admin: 08/02/18 09:00 Dose: 10 mg Pantoprazole Sodium (Protonix Ec Tab) 40 mg PO DAILY [facility] Last Admin: 08/02/18 08:58 Dose: 40 mg - Labs Labs: 07/31/18 05:40 07/31/18 05:40 - Constitutional Appears: No Acute Distress - Head Exam Head Exam: NORMAL INSPECTION - Eye Exam Eye Exam: PERRL - ENT Exam ENT Exam: Normal Exam - Neck Exam Neck Exam: Normal Inspection - Respiratory Exam Respiratory Exam: Decreased Breath Sounds (b/l), Wheezes (b/l) - Cardiovascular Exam Cardiovascular Exam: REGULAR RHYTHM - GI/Abdominal Exam GI & Abdominal Exam: Soft, Normal Bowel Sounds - Extremities Exam Extremities Exam: Normal Inspection - Back Exam Back Exam: NORMAL INSPECTION - Neurological Exam Neurological Exam: Alert, Awake, Oriented x3. absent: Motor Sensory Deficit - Psychiatric Exam Psychiatric exam: Normal Mood - Skin Skin Exam: Warm Assessment and Plan (1) Asthma exacerbation Status: Acute (2) Hypercholesterolemia Status: Chronic - Assessment and Plan (Free Text) Plan: Continue Duoneb, Solu-Medrol, Singulair and rest of Tx.
[2018-08-03] MEDS: Albuterol-Ipratrop 3 mg / 0.5 (3 ml) UD INH SCH ×5 (00:20→19:21)
[2018-08-03] MEDS: MethylPREDNISolone 40 mg Vial IVP SCH ×3 (03:37→16:52)
[2018-08-03] MEDS: Enoxaparin 40 mg Syringe SC SCH (09:21)
[2018-08-03] MEDS: Pantoprazole 40 mg EC Tab PO SCH (09:22)
--- NOTE | 2018-08-03 16:12 | CP.PCM.PN ---
Subjective - Subjective Subjective: cough dry in the morning, no SOB, no ARVIZU Objective - Vital Signs/Intake and Output Vital Signs (last 24 hours): Temp Pulse Resp BP Pulse Ox 97.5 F L 72 19 147/79 97 08/03/18 07:55 08/03/18 07:55 08/03/18 07:55 08/03/18 07:55 08/03/18 07:55 - Medications Medications: Current Medications Albuterol/Ipratropium (Duoneb 3 Mg/0.5 Mg (3 Ml) Ud) 3 ml INH RQ4 [facility] Last Admin: 08/03/18 15:41 Dose: Not Given Aspirin (Aspirin Chewable) 81 mg PO DAILY [facility] Last Admin: 08/03/18 09:22 Dose: 81 mg Methylprednisolone (Solu-Medrol) 30 mg IVP Q8 [facility] Montelukast Sodium (Singulair) 10 mg PO DAILY [facility] Last Admin: 08/03/18 09:22 Dose: 10 mg Pantoprazole Sodium (Protonix Ec Tab) 40 mg PO DAILY [facility] Last Admin: 08/03/18 09:22 Dose: 40 mg Fluticasone/Salmeterol (Advair Diskus 500/50) 1 puff IH Q12 [facility] Sennosides (Senokot Tab) 17.2 mg PO HS [facility] Last Admin: 08/03/18 00:00 Dose: 17.2 mg - Labs Labs: 07/31/18 05:40 07/31/18 05:40 - Constitutional Appears: No Acute Distress - Head Exam Head Exam: NORMAL INSPECTION - Eye Exam Eye Exam: PERRL - Neck Exam Neck Exam: Normal Inspection - Respiratory Exam Respiratory Exam: Decreased Breath Sounds (at bases), Wheezes (scattered) - Cardiovascular Exam Cardiovascular Exam: REGULAR RHYTHM - GI/Abdominal Exam GI & Abdominal Exam: Soft, Normal Bowel Sounds - Extremities Exam Extremities Exam: Normal Inspection - Back Exam Back Exam: NORMAL INSPECTION - Neurological Exam Neurological Exam: Alert, CN II-XII Intact, Oriented x3. absent: Motor Sensory Deficit - Psychiatric Exam Psychiatric exam: Normal Affect, Normal Mood - Skin Skin Exam: Warm Assessment and Plan (1) Asthma exacerbation Status: Acute (2) Dyslipidemia Status: Acute - Assessment and Plan (Free Text) Plan: DuoNeb, taper SoluMedrol, Advair, Lipitor
[2018-08-03] MEDS ORDERED: methylPREDNISolone 30 MG in Sodium Chloride 0.9% 50 ML IVPB SCH (17:00)
[2018-08-03] MEDS: Fluticasone-Salmeterol 500-50mcg Diskus IH SCH (21:56)
[2018-08-04] MEDS: Albuterol-Ipratrop 3 mg / 0.5 (3 ml) UD INH SCH ×4 (00:04→11:27)
[2018-08-04] MEDS: MethylPREDNISolone 40 mg Vial IVP SCH ×2 (00:45→08:47)
[2018-08-04 08:26] VITALS: BP 135/78; PULSE 83; RESP 20; TEMP 97.5; O2SAT 99
[2018-08-04] MEDS: Pantoprazole 40 mg EC Tab PO SCH (08:46)
[2018-08-04] MEDS: Fluticasone-Salmeterol 500-50mcg Diskus IH SCH (08:46)
[2018-08-04] MEDS ORDERED: Fluticasone-Salmeterol 500-50mcg Diskus IH SCH (09:00)
--- NOTE | 2018-08-04 14:46 | CP.PCM.DIS ---
Provider - Provider Date of Admission: 07/31/18 11:50 Attending physician: Faisal Lawrence MD Consults: 07/31/18 04:21 Social Work Referral Routine Comment: history substance abuse Physician Instructions: Reason For Exam: discharge planning Diagnosis - Discharge Diagnosis (1) Asthma exacerbation Status: Acute Priority: High (2) Dyslipidemia Status: Acute Hospital Course - Lab Results Lab Results: Most Recent Lab Values WBC 8.2 K/uL (4.8-10.8) 07/31/18 05:40 RBC 4.57 Mil/uL (3.80-5.20) 07/31/18 05:40 Hgb 14.2 g/dL (12.0-16.0) 07/31/18 05:40 Hct 44.0 % (34.0-47.0) 07/31/18 05:40 MCV 96.5 fl (81.0-99.0) 07/31/18 05:40 MCH 31.1 pg (27.0-31.0) H 07/31/18 05:40 MCHC 32.2 g/dL (33.0-37.0) L 07/31/18 05:40 RDW 14.5 % (11.5-14.5) 07/31/18 05:40 Plt Count 267 K/uL (130-400) 07/31/18 05:40 MPV 8.3 fl (7.2-11.7) 07/30/18 20:54 Neut % (Auto) 75.9 % (50.0-75.0) H 07/30/18 20:54 Lymph % (Auto) 14.2 % (20.0-40.0) L 07/30/18 20:54 [place] % (Auto) 7.1 % (0.0-10.0) 07/30/18 20:54 Eos % (Auto) 2.4 % (0.0-4.0) 07/30/18 20:54 Baso % (Auto) 0.4 % (0.0-2.0) 07/30/18 20:54 Neut # (Auto) 7.8 K/uL (1.8-7.0) H 07/30/18 20:54 Lymph # (Auto) 1.5 K/uL (1.0-4.3) 07/30/18 20:54 [place] # (Auto) 0.7 K/uL (0.0-0.8) 07/30/18 20:54 Eos # (Auto) 0.3 K/uL (0.0-0.7) 07/30/18 20:54 Baso # (Auto) 0.0 K/uL (0.0-0.2) 07/30/18 20:54 Sodium 138 mmol/l (132-148) 07/31/18 05:40 Potassium 4.6 MMOL/L (3.6-5.0) 07/31/18 05:40 Chloride 102 mmol/L (98-107) 07/31/18 05:40 Carbon Dioxide 23 mmol/L (22-30) 07/31/18 05:40 Anion Gap 18 (10-20) 07/31/18 05:40 BUN 19 mg/dl (7-17) H 07/31/18 05:40 Creatinine 0.9 mg/dl (0.7-1.2) 07/31/18 05:40 Est GFR ( Amer) > 60 07/31/18 05:40 Est GFR (Non-Af Amer) > 60 07/31/18 05:40 Random Glucose 179 mg/dL (65-105) H 07/31/18 05:40 Calcium 9.7 mg/dL (8.4-10.2) 07/31/18 05:40 Total Bilirubin 0.5 mg/dl (0.2-1.3) 07/31/18 05:40 AST 19 U/L (14-36) 07/31/18 05:40 ALT 16 U/L (9-52) 07/31/18 05:40 Alkaline Phosphatase 88 U/L (38-126) 07/31/18 05:40 Total Protein 8.5 G/DL (6.3-8.2) H 07/31/18 05:40 Albumin 4.5 g/dL (3.5-5.0) 07/31/18 05:40 Globulin 4.0 gm/dL (2.2-3.9) H 07/31/18 05:40 Albumin/Globulin Ratio 1.1 (1.0-2.1) 07/31/18 05:40 Triglycerides 71 mg/DL (0-149) D 07/31/18 05:40 Cholesterol 338 mg/dL (0-199) H 07/31/18 05:40 LDL Cholesterol Direct 209 mg/dL (0-129) H 07/31/18 05:40 HDL Cholesterol 67 MG/DL (30-70) 07/31/18 05:40 Thyroxine (T4) 9.32 ug/dl (5.5-11.0) 07/31/18 05:40 Total T3 0.812 nmol/L (1.49-2.60) L 07/31/18 05:40 TSH 3rd Generation 0.21 mIU/ML (0.46-4.68) L 07/31/18 05:40 Discharge Exam - Head Exam Head Exam: NORMAL INSPECTION Discharge Plan - Discharge Medications Prescriptions: Fluticasone/Salmeterol 500/50 [Advair Diskus 500/50] 1 puff IH Q12 #1 puff Atorvastatin [Lipitor] 20 mg PO DAILY #30 tab Promethazine DM [Phenergan DM Syrup] 10 ml PO Q6 #120 ml predniSONE [predniSONE Tab] 35 mg PO DAILY #30 tab Pantoprazole [Protonix EC Tab] 40 mg PO DAILY #30 ect Montelukast [Singulair] 10 mg PO DAILY #30 tab - Follow Up Plan Condition: STABLE Disposition: HOME/ ROUTINE Instructions: Asthma, Adult (DC) Additional Instructions: follow up with primary MD 1 week Referrals: Faisal Lawrence MD [Staff Provider] -
== END 2018-08-04 13:46 | disposition home or self-care (01) | DRG 203 ==
LOC: H.ER 19:23 → H.ERHOLD 22:40 → H.MEDSURG1 07-31 01:52 → OBSVTOIN 07-31 11:50 → H.MEDSURG1 08-02 09:11
PROVIDERS: ADMIT Internal Medicine Pulmonary Disease; ATTEND Internal Medicine Pulmonary Disease
PROC: 3E0234Z Introduction of Serum, Toxoid and Vaccine into Muscle, Percutaneous Approach (ICD-10-PCS; principal; 2018-07-31)
PROC: 3E02340 Introduction of Influenza Vaccine into Muscle, Percutaneous Approach (ICD-10-PCS; 2018-07-31)
DX: J45.901 Unspecified asthma with (acute) exacerbation (principal); E86.0 Dehydration; E78.00 Pure hypercholesterolemia, unspecified; E78.5 Hyperlipidemia, unspecified; Z88.0 Allergy status to penicillin; Z23 Encounter for immunization; Z86.73 Personal history of transient ischemic attack (TIA), and cerebral infarction without residual deficits; Z79.82 Long term (current) use of aspirin